=== PATIENT | male | born 1975 | race African-American/Black ===

== ENCOUNTER 2022-07-30 17:22 | Emergency (ER) | payer SELFPAY ==
[~2022-07-30] VITALS: Ht 177.8 cm; Wt 82.0 kg
[2022-07-30 18:17] VITALS: BP 138/91
[2022-07-30] MEDS ORDERED: NAPR-681 MT (22:24)
[2022-07-30] MEDS ORDERED: AMOX1TAB15 MT (22:24)
[2022-07-30] MEDS ORDERED: DEXAMETHASONE 4MG TABLET PO ONE (22:30)
[2022-07-30] MEDS ORDERED: ACETAMINOPHEN 325MG TABLET PO ONE (22:30)
== END 2022-07-30 22:40 | disposition home or self-care (01) ==
LOC: ER 17:22
DX: H66.93 Otitis media, unspecified, bilateral (principal); J45.909 Unspecified asthma, uncomplicated
CPT/HCPCS: 99283; J8540